=== PATIENT | female | born 2000 | race Caucasian/White ===

== ENCOUNTER 2023-11-30 15:17 | Outpatient (REF) | payer OTHER, SELFPAY ==
[2023-11-30 18:13] LABS: WBC 20-50 HPF (0-5)
[2023-11-30 18:14] LABS: Bacteria Few HPF (Negative); C & S Indicated? C&S Done As Ordered; Casts Negative LPF (Negative); Crystals Moderate Amorphous HPF (Negative); Epithelial Cells Few HPF (Negative); Mucus Trace (Negative); RBC 0-2 HPF (0-2)
== END 2023-11-30 15:18 | disposition home or self-care (01) ==
LOC: NCHCN 15:17
PROVIDERS: Referring Provider Physician Assistant Medical; Visit Provider Physician Assistant Medical
DX: R30.0 Dysuria (principal)
CPT/HCPCS: 81015; 87086

== ENCOUNTER 2024-02-02 12:55 | Outpatient (REF) | payer OTHER, SELFPAY | END 2024-02-02 12:56 | disposition home or self-care (01) | LOC: LBN 12:55 | PROVIDERS: Visit Provider Physician Assistant Medical | DX: J02.9 Acute pharyngitis, unspecified (principal) | CPT/HCPCS: 87070 ==

== ENCOUNTER 2024-06-20 08:18 | Emergency (ER) | payer OTHER, SELFPAY ==
[2024-06-20 08:31] VITALS: BP 120/78; PULSE 77; RESP 18; TEMP 36.4; O2SAT 98
--- NOTE | 2024-06-20 08:42 | NUR.NOTE ---
Nursing Note: pt explained to this RN her plan for suicide is she would park her car in a garage, start the car, drink Nyqil and go to sleep. She does not know anyone with a garage she stated it would be hard to carry out this plan
--- NOTE | 2024-06-20 08:59 | ED.GENADUL_ITS ---
Discharge Plan Discharge Details Chief Complaint: PsychEval Primary Care Provider: Annamarie Batista ED Provider: Xochitl Case General Mode of arrival: ambulatory . Date/Time Provider Initiated Documentation: 06/20/24 08:41 . Limitations to Documentation: no limitations . Information obtained by: patient, family, RN notes reviewed and old records reviewed . HPI Narrative: 23-year-old female presents to the ER with a chief complaint of suicidal ideations and increased depression over the last couple of weeks. Patient states I just do not see the point, we will in the end anyways so why not just get it over with. She reports she is recently ran out of her Wellbutrin training which was recently represcribed by her PCP. She also takes Lexapro. She endorses marijuana denies any drugs or alcohol does not appear to be under the influence of any substances. She reports that she has had some diarrhea as she has IBS. She is also complaining of a headache. General Stated Complaint: PsychEval CECIL: 2 Review of Systems All systems reviewed & are unremarkable except as noted in HPI and below Psychiatric Psychiatric: Reports as per HPI, Reports depression and Reports suicidal ideation Exam Narrative Exam Narrative: Constitutional: Alert and oriented x3. Appears stated age. Normal body habitus. Head: Normocephalic, no trauma. Eyes: Pupils PERRL, Red reflex noted, EOM's intact. Eyelids symmetrical without lesions, discharge, or swelling. ENT: Bilateral TM's WNL, External ear normal to inspection, no mastoid TTP, swelling, or erythema, Nasal turbinates WNL, no nasal discharge. Normal dentition, Posterior pharynx WNL, no exudate. Chest: RRR, Normal S1, S2, distal pulses intact. Resp: Lungs clear to auscultation bilaterally, no wheezes, rales, or rhonchi. Abdomen: Soft, non-distended, Normoactive bowel sounds all 4 quads. Musculoskeletal: Normal gait, Moves all 4 extremities without difficulty. Skin: No suspicious rashes or lesions. Capillary refill less than 2 sec. Neurologic: Cranial nerves II-XII intact. Alert and oriented x 3. Motor: No deficits noted. Sensory: Intact bilaterally all 4 extremities. Hematologic/Lymphatic: No ecchymosis, no lymphadenopathy. Psych Appearance: grossly normal Speech and Movement: speech and movement normal Affect: sad Attitude: cooperative Thought Process: normal Thought Content: suicidality Insight: insight good and fair Judgment: fair Course Vital Signs Vital signs: Vital Signs Temperature 36.4 C 06/20/24 08:31 Pulse 77 06/20/24 08:31 Respiratory Rate 18 06/20/24 08:31 Blood Pressure 120/78 06/20/24 08:31 Pulse Oximetry 98 06/20/24 08:31 Temperature 36.4 C 06/20/24 08:31 Temperature Source Temporal Artery Scan 06/20/24 08:31 Pulse 77 06/20/24 08:31 Respiratory Rate 18 06/20/24 08:31 Respiratory Effort Normal, Non-Labored 06/20/24 08:35 Blood Pressure 120/78 06/20/24 08:31 Pulse Oximetry 98 06/20/24 08:31 Medical Decision Making 23-year-old female presents to the ER with a chief complaint of suicidal ideations and increased depression over the last couple of weeks. Patient states I just do not see the point, we will in the end anyways so why not just get it over with. She reports she is recently ran out of her Wellbutrin training which was recently represcribed by her PCP. She also takes Lexapro. She endorses marijuana denies any drugs or alcohol does not appear to be under the influence of any substances. She reports that she has had some diarrhea as she has IBS. She is also complaining of a headache. Urinalysis ordered, smart medical clearance form filled out, mental health consultation ordered. Patient placed in zone B from triage placed in paper scrubs. UDS is positive for THC, 1154: Spoke with [facility] human services spoke with Maritza who will pass the information along with the clinician and will have an evaluation. Patient is requesting nicotine gum, orders placed. 1533: Mental health is here for the evaluation at this time. Care is to be handed off to oncoming provider BEVERLEY Culp pending mental health eval and disposition. Patient has been calm cooperative and stable throughout the remainder of her stay. Medical Records Medical records reviewed: Yes I reviewed the patient's medical records. Lab Data Lab results reviewed: Yes I reviewed the patient's lab results. Labs: Laboratory Tests Range/Units 06/20/24 09:57 Urine Color (Yellow) Yellow Urine Clarity (Clear) Clear Urine pH (5-8) 7.5 Ur Specific [place] (1.005-1.025) 1.015 Urine Protein (Neg-Trace) mg/dL Negative Urine Ketones (Negative) mg/dL Negative Urine Blood (Negative) Trace-intact H Urine Nitrite (Negative) Negative Urine Bilirubin (Negative) Negative Urine Urobilinogen (Up to 0.2) mg/dL 0.2 Ur Leukocyte Esterase (Negative) Small H Urine RBC (0-2) HPF 0-2 Urine WBC (0-5) HPF 5-10 Ur Epithelial Cells (Negative) HPF Few Urine Crystals (Negative) HPF Negative Urine Bacteria (Negative) HPF Few Urine Casts (Negative) LPF Negative Urine Mucus (Negative) Negative Ur Culture Indicated? No Urine Glucose (Negative) mg/dL Negative Urine Opiates Screen (Negative) Negative Urine Methadone Screen (Negative) Negative Ur Barbiturates Screen (Negative) Negative Ur Tricyclics Screen (Negative) Negative Ur Amphetamines Screen (Negative) Negative U Benzodiazepines Scrn (Negative) Negative Urine Cocaine Screen (Negative) Negative Ur THC Screen (Negative) Positive A Quality:SDOH Health Related Social Needs: No Data to Display [facility] Social History Smoking/Tobacco Use Status: Current every day Tobacco Type: e-cigarettes Smoking risk assessment performed?: Yes Alcohol Intake: never Drug use: Daily Substance use type: marijuana Housing: apartment Do you feel safe at home: No (doesnt feel safe with self) Do you feel safe in your relationship?: Yes Additional Social history: Lives with boyfriend and son stay with her 1/2 the time -CUAUHTEMOC CONKLIN 06/20/24 Sign Out Sign Out Data: Sign Out Comment: Pending eval and disposition. Here with Suicidal ideations. Last updated by Xochitl Case NP at 06/20/24 15:33
[2024-06-20 10:06] LABS: Bilirubin Negative (Negative); Blood Trace-intact (Negative); Clarity Clear (Clear); Glucose Negative (Negative); Ketones Negative (Negative); Leukocyte Esterase Small (Negative); Nitrite Negative (Negative); Specific Gravity 1.015 (1.005-1.025); Urobilinogen 0.2 mg/dL (Up to 0.2); pH 7.5 (5-8)
[2024-06-20 10:12] LABS: Bacteria Few HPF (Negative); C & S Indicated? No; Casts Negative LPF (Negative); Crystals Negative HPF (Negative); Epithelial Cells Few HPF (Negative); Mucus Negative (Negative); RBC 0-2 HPF (0-2)
[2024-06-20 10:17] LABS: *AMPHETAMINES SCREEN URINE Negative (Negative); *BARBITURATES SCREEN URINE Negative (Negative); *BENZODIAZEPINES SCREEN URINE Negative (Negative); Cannabinoids THC Positive (Negative); Cocaine Screen,Urine Negative (Negative); METHADONE URINE SCREEN Negative (Negative); OPIATES URINE SCREEN Negative (Negative)
[2024-06-20 10:19] LABS: Tricyclic Antidepressants Negative (Negative)
[2024-06-20] MEDS: Nicotine 2 MG GUM CH (13:27)
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
== END 2024-06-20 16:16 | disposition home or self-care (01) ==
PROVIDERS: Emergency Provider Registered Nurse Emergency; PCP Registered Nurse
DX: R45.851 Suicidal ideations (principal); F32.A Depression, unspecified; F17.290 Nicotine dependence, other tobacco product, uncomplicated
CPT/HCPCS: 00123; 80307; 81025; 96127; 99284; 81003; 81015

== ENCOUNTER 2025-03-24 19:26 | Emergency (ER) | payer MEDICAID, SELFPAY ==
--- NOTE | 2025-03-24 19:28 | ED.GENADUL_ITS ---
Discharge Plan Disposition Patient Disposition: Home Discharge Details Clinical Impression: Body aches Primary Care Provider: Annamarie Batista ED Provider: Florentino Fernandez Discharge Instructions Additional Instructions: You were seen for your body aches and nausea. Your blood work shows that your kidneys are working well and that you have no signs of low blood counts. Please return to emergency department if you develop any chest pain shortness of breath or abdominal pain. Please otherwise follow-up with primary care provider next week as needed. HPI General Date/Time Provider Initiated Documentation: 03/24/25 19:28 . HPI Narrative: MDM This is an overall well-appearing mildly tearful 24-year-old normothermic and not tachycardic female with nausea decreased appetite for which she will undergo assessment of electrolytes. She has a soft nontender abdomen and no history personally nor in her family of inflammatory bowel disease so I am not suspicious for new diagnosis of IBD. Furthermore she denies family history of Crohn's and ulcerative colitis. No dysuria or frequency to suggest acute cystitis. No chest pain and patient is PERC negative so I was not suspicious for PE and did not send a D-dimer. Patient did not syncopized so I was not suspicious for dysrhythmia so I did not feel that she required a twelve-lead ECG. Will obtain basic labs. I considered sepsis however she is normothermic and not tachycardic nor hypotensive. No pain or proportion to suggest necrotizing soft tissue infection. She is neurologically intact so I am not suspicious for acute CVA so I do not feel she requires a CT scan of her head. 11:42 PM Late charting due to patient care. Patient's labs were quite reassuring. She had no anemia and thrombocytopenia nor leukocytosis. She had reassuring renal function. She had very mild hypokalemia but was not suspicious for ongoing losses as she is not on a diuretic nor she been vomiting so I did not feel that she required repletion in the ED. She tolerated p.o. in the ED. She was amatory. We discussed return indications including any fevers inability tolerate p.o. any chest pain or any shortness of breath. She has outpatient PCP follow-up and is due to be seen by a power system engineer in the next month or 2. She understood her return indications and was discharged with an empiric trial of expectant outpatient management. She is neither suicidal nor homicidal. HPI This is a patient with a history of fibromyalgia, unspecified autoimmune disease, anxiety, and depression presenting with exacerbation of symptoms. The patient arrived in the ED accompanied by a bellman driver. The patient reports experiencing a flare-up of her usual symptoms over the past 5 days. She has had a significant loss of appetite, severe nausea before and after meals, and diarrhea. Yesterday, she almost sought immediate medical attention due to cyanosis in her lips and numbness in her fingers, particularly the thumbs. She describes a sensation denise to breathing through a straw, which she believes is exacerbated by panic. Additionally, she has been feeling more dizzy than usual and sweating profusely, regardless of the temperature. The patient reports chest pain, which she attributes to anxiety, and generalized weakness, which she associates with her fibromyalgia. She has not traveled recently and is currently unemployed. She reports no fevers or runny nose. She has no history of kidney stones. She lives with her boyfriend, who is not ill. The patient has been experiencing diarrhea for the past 2 weeks and reports mild abdominal tenderness. The patient has depression, which she describes as stable. She takes hydroxyzine for anxiety but had to discontinue it due to its interaction with Cymbalta. Exam General: Well-appearing in no acute distress speaking in complete sentences. Head: Normocephalic, atraumatic. Eye:[Pupils equal, round reactive to light.] Extraocular eye movements intact. No conjunctival injection. No scleral icterus. Ear, nose, mouth, throat: Grossly normal inspection. Normal voice, handling secretions normally. Neck: Trachea midline. Cardiovascular: Well-perfused distal extremities. Respiratory: Nonlabored respiration. Gastrointestinal: Nondistended abdomen. Musculoskeletal: No edema. Moving all 4 extremities spontaneously. Skin: Normal for age and race, grossly normal temperature and turgor. No acute rash. Neurologic: Alert and appropriate, no apparent acute deficits. Psychiatric: Mood and manner are appropriate. Grooming and personal hygiene are appropriate. General CECIL: 2 PFSH All Active Problems (Updated 03/24/25 @ 20:42 by Florentino Fernandez MD) Body aches (Acute) Social History Smoking/Tobacco Use Status: Current every day Tobacco Type: e-cigarettes Smoking risk assessment performed?: Yes Alcohol Intake: never Drug use: Daily Substance use type: former substance user and marijuana Details: stopped using marijuana about 2 weeks ago. MG 03/24/25 Housing: apartment Do you feel safe at home: No (doesnt feel safe with self) Do you feel safe in your relationship?: Yes Additional Social history: Lives with boyfriend and son stay with her 1/2 the time 03/24/25
[2025-03-24 19:29] VITALS: BP 159/90; PULSE 97; RESP 18; TEMP 37.3; O2SAT 99
[2025-03-24 19:35] VITALS: BP 159/90; PULSE 97; RESP 18; TEMP 37.3; O2SAT 99
[2025-03-24] MEDS: hydrOXYzine HCL 25 MG TAB PO (20:10)
[2025-03-24 20:16] LABS: Abs Immature Grans 0.01 10^3/uL (0.0-0.06); HCT 40.8 % (36.0-46.0); HGB 13.5 g/dL (11.2-15.7); Immature Grans % 0.1 %; MCH 29.4 pg (27.0-33.0); MCHC 33.1 % (32.0-36.0); MCV 89 fL (80-95); MPV 10.8 fL (8.0-11.0); Platelet Count 262 10^3/uL (130-400); RBC 4.59 10^6/uL (3.93-5.22); RDW 11.9 % (11.7-14.6); RDW-SD 37.9 fL; WBC 7.82 10^3/uL (4.4-10.8)
[2025-03-24 20:23] LABS: Anion Gap 13.2 mmol/L (3-11); BUN 9 mg/dL (7-18); CO2 26.8 mmol/L (21.0-32.0); Calcium 9.4 mg/dL (8.5-10.1); Chloride 102 mmol/L (98-107); Estimated GFR 105.45 (mL/min/1.73m2); Glucose 86 mg/dL (74-106); Potassium 3.4 mmol/L (3.5-5.1); Sodium 142 mmol/L (136-145)
[2025-03-24 20:28] LABS: HCG Qual (Serum) Negative
[2025-03-24] MEDS: Ondansetron O.D.T. 4 MG TABEF PO (20:58)
[2025-03-24] MEDS: Gabapentin 300 MG CAP PO (20:58)
[2025-03-24 21:07] VITALS: BP 128/70; PULSE 76; RESP 18; O2SAT 98
== END 2025-03-24 21:08 | disposition home or self-care (01) ==
PROVIDERS: Emergency Provider Emergency Medicine; PCP Registered Nurse
DX: M79.18 Myalgia, other site (principal); R11.0 Nausea
CPT/HCPCS: 99283; 99282; 80048; 84703; 85025

== ENCOUNTER 2025-07-03 11:52 | Emergency (ER) | payer MEDICAID, SELFPAY ==
[2025-07-03 11:59] VITALS: BP 125/88; PULSE 89; RESP 16; TEMP 36.8; O2SAT 98
[2025-07-03 12:29] VITALS: BP 125/88; PULSE 89; RESP 16; TEMP 36.8; O2SAT 98
--- NOTE | 2025-07-03 12:29 | ED.GENADUL_ITS ---
Discharge Plan Disposition Patient Disposition: Home Condition: Stable Discharge Details Clinical Impression: Fatigue Primary Care Provider: Annamarie Batista ED Provider: Xochitl Case Home Meds and New Rx's Prescriptions: Continued propranolol 10 mg tablet Patient Comments: Take 1/2 tablet by mouth twice a day as needed as directed for anxiety amitriptyline 25 mg tablet 25 mg PO HS Patient Comments: TAKE ONE TABLET BY MOUTH AT BEDTIME FOR PAIN AND SLEEP medroxyprogesterone 150 mg/mL suspension IM Patient Comments: INJECT 1ML INTRAMUSCULARLY EVERY 11 TO 13 WEEKS FOR CONTRACEPTION. SCHEDULE INJECTION AT [facility] (BRING INJECTION TO APPT) hydroxyzine pamoate 25 mg capsule Patient Comments: Take 1-2 capsule by mouth every night at bedtime for insomnia duloxetine 30 mg capsule,delayed release(DR/EC) PO Patient Comments: Take 1 capsule by mouth twice a day for pain and mood cholecalciferol (vitamin D3) [Vitamin D3] 25 mcg (1,000 unit) tablet,chewable 25 mcg PO DAILY Discharge Instructions Instructions: Fatigue ED Additional Instructions: No evidence of urinary tract infection. Follow up with primary care provider in 3-5 days. Return to ED sooner if any worsening or concerns. Please take Tylenol or Ibuprofen with food every 4-6 hours as needed for pain and swelling. Referrals: Annamarie Batista [Primary Care Provider, Medicine] - 5 days Referral Note: ER follow-up, call for an appointment Discharge Data Discharge Date/Time-TO BE ENTERED AT DEPARTURE: 07/03/25 12:53 HPI General Mode of arrival: ambulatory . Date/Time Provider Initiated Documentation: 07/03/25 12:17 . Limitations to Documentation: no limitations . Information obtained by: patient, RN notes reviewed and old records reviewed . HPI Narrative: 24-year-old female presents to the ER with a chief complaint of generalized not feeling well for the last few days. She states that she had an episode of diarrhea which has since resolved and is complaining of some bodyaches. She does have a history of fibromyalgia and had been out of some of her normal daily medications however she was able to refill these and has been taking them as directed. Denies any nausea vomiting. She does also report some increased urinary frequency. She presented to urgent care and was instructed to present here for further evaluation. Denies any chest pain shortness of breath or any other associated symptoms. Related Data Home Medications ?Medication ?Instructions ?Recorded ?Confirmed amitriptyline 25 mg tablet 25 mg PO HS 07/03/25 cholecalciferol (vitamin D3) 25 25 mcg PO DAILY 07/03/25 mcg (1,000 unit) chewable tablet (Vitamin D3) duloxetine 30 mg capsule,delayed mg PO 07/03/25 release hydroxyzine pamoate 25 mg capsule mg 07/03/25 medroxyprogesterone 150 mg/mL mg IM 07/03/25 intramuscular suspension propranolol 10 mg tablet mg 07/03/25 Allergies Allergy/AdvReac Type Severity Reaction Status Date / Time No Known Allergies Allergy Unverified 07/03/25 12:04 General Stated Complaint: GenMedical CECIL: 3 Review of Systems All systems reviewed & are unremarkable except as noted in HPI and below Constitutional Constitutional: Reports as per HPI and Reports body ache(s) Gastrointestinal Gastrointestinal: Reports diarrhea Genitourinary Genitourinary: Reports urinary urgency Exam Narrative Exam Narrative: Constitutional: Alert and oriented x3. Appears stated age. Normal body habitus. Head: Normocephalic, no trauma. Eyes: Pupils PERRL, Red reflex noted, EOM's intact. Eyelids symmetrical without lesions, discharge, or swelling. ENT: Bilateral TM's WNL, External ear normal to inspection, no mastoid TTP, swelling, or erythema, Nasal turbinates WNL, no nasal discharge. Normal dentition, Posterior pharynx WNL, no exudate. Chest: RRR, Normal S1, S2, distal pulses intact. Resp: Lungs clear to auscultation bilaterally, no wheezes, rales, or rhonchi. Abdomen: Soft, non-distended, Normoactive bowel sounds all 4 quads. Musculoskeletal: Normal gait, Moves all 4 extremities without difficulty. Skin: No suspicious rashes or lesions. Capillary refill less than 2 sec. Neurologic: Cranial nerves II-XII intact. Alert and oriented x 3. Motor: No deficits noted. Sensory: Intact bilaterally all 4 extremities. Hematologic/Lymphatic: No ecchymosis, no lymphadenopathy. Course Vital Signs Vital signs: Vital Signs Temperature 36.8 C 07/03/25 11:59 Pulse 89 07/03/25 11:59 Respiratory Rate 16 07/03/25 11:59 Blood Pressure 125/88 07/03/25 11:59 Pulse Oximetry 98 07/03/25 11:59 Temperature 36.8 C 07/03/25 11:59 Temperature Source Oral 07/03/25 11:59 Pulse 89 07/03/25 11:59 Respiratory Rate 16 07/03/25 11:59 Blood Pressure 125/88 07/03/25 11:59 Pulse Oximetry 98 07/03/25 11:59 Pain Level 6 07/03/25 11:59 Medical Decision Making 24-year-old female presents to the ER with a chief complaint of generalized not feeling well for the last few days. She states that she had an episode of diarrhea which has since resolved and is complaining of some bodyaches. She does have a history of fibromyalgia and had been out of some of her normal daily medications however she was able to refill these and has been taking them as directed. Denies any nausea vomiting. She does also report some increased urinary frequency. She presented to urgent care and was instructed to present here for further evaluation. Denies any chest pain shortness of breath or any other associated symptoms. Urinalysis ordered, urine test. No evidence of urinary tract infection. Will discharge patient with follow-up with primary care provider. PFSH All Active Problems (Updated 07/03/25 @ 12:44 by Xochitl Case NP) Fatigue (Acute) Social History Smoking/Tobacco Use Status: Current every day Tobacco Type: e-cigarettes Smoking risk assessment performed?: Yes Alcohol Intake: never Drug use: Daily Substance use type: former substance user and marijuana Details: stopped using marijuana about 2 weeks ago. MG 03/24/25 Housing: apartment Do you feel safe at home: No (doesnt feel safe with self) Do you feel safe in your relationship?: Yes Additional Social history: Lives with boyfriend and son stay with her 1/2 the time 03/24/25
[2025-07-03 12:37] LABS: Glucose Negative (Negative)
[2025-07-03 12:53] VITALS: BP 131/84; PULSE 70; RESP 16; TEMP 37; O2SAT 98
== END 2025-07-03 12:53 | disposition home or self-care (01) ==
PROVIDERS: Emergency Provider Registered Nurse Emergency; PCP Registered Nurse
DX: R53.83 Other fatigue (principal); R42 Dizziness and giddiness
CPT/HCPCS: 99282; 99283; 81025; 81003